=== PATIENT | male | born 1940 | race Caucasian/White ===

== ENCOUNTER 2018-04-01 09:20 | Emergency (ER) | payer MEDICARE ==
[~2018-04-01] VITALS: Ht 172.7 cm; Wt 86.2 kg
--- NOTE | 2018-04-01 09:36 | NUR ---
received a 77 y/o male patient, c/o chest pain. 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
[2018-04-01] MEDS ORDERED: DIATR MEGLU/DIATRIZOATE SODIUM 120 ML BOTTLE ONE (09:55)
[2018-04-01] MEDS ORDERED: IV NORMAL SALINE 500 ML BAG IV ONE (10:00)
[2018-04-01 10:04] LABS: BASOPHILS % (AUTO) 0.4 % (0.0-2.0); EOSINOPHILS # (AUTO) 0.1 K/uL (0.0-0.7); EOSINOPHILS % (AUTO) 2.8 % (0.0-7.0); HEMATOCRIT 44.3 % (36.7-47.1); HEMOGLOBIN 15.2 g/dL (12.5-16.3); LYMPHOCYTES # (AUTO) 1.7 K/uL (20.0-40.0); MEAN CORPUSCULAR HEMOGLOBIN 31.8 uug (23.8-33.4); MEAN CORPUSCULAR HGB CONC 34 g/dL (32.5-36.3); MEAN CORPUSCULAR VOLUME 92.8 fL (73.0-96.2); MONOCYTES # (AUTO) 0.4 K/uL (2.0-10.0); MONOCYTES % (AUTO) 7.9 % (0.0-11.0); NEUTROPHILS # (AUTO) 2.3 K/uL (1.8-8.9); NEUTROPHILS % (AUTO) 50.9 % (38.5-71.5); PLATELET COUNT (AUTO) 183 K/uL (152-348); RED BLOOD CELL COUNT(AUTO) 4.78 MIL/uL (4.06-5.63); WHITE BLOOD COUNT (AUTO) 4.5 K/uL (3.6-10.2)
--- NOTE | 2018-04-01 10:08 | NUR ---
RT AC IV LINE INSERTED G20, HOOKED TO N/S 500ML. RECEIVING ORAL CONTRAST, FOR CT W CONTRAST. CT QUESTIONNAIRE FILLED AND SIGNED
[2018-04-01 10:11] LABS: CARBON DIOXIDE 27 mmol/L (21-32); CHLORIDE 105 mmol/L (98-107); CREATININE 1.2 mg/dL (0.6-1.3); GLUCOSE 93 mg/dL (74-106); POTASSIUM 4.3 mmol/L (3.5-5.1); UREA NITROGEN, BLOOD 16 mg/dL (7-18)
[2018-04-01 10:17] LABS: ALANINE AMINOTRANSFERASE 26 U/L (16-63); ALKALINE PHOSPHATASE 95 U/L (50-136); ASPARTATE AMINOTRANSFERASE 17 U/L (15-37); BILIRUBIN,DIRECT 0.2 mg/dL (0.0-0.2); BILIRUBIN,TOTAL 0.8 mg/dL (0.2-1.0); LIPASE 176 U/L (73-393); TOTAL PROTEIN, SERUM 7.6 g/dL (6.4-8.2)
--- NOTE | 2018-04-01 11:06 | NUR ---
PT SENT TO RADIOLOGY UNIT FOR CT SCAN.
[2018-04-01 13:00] VITALS: BP 124/64
--- NOTE | 2018-04-01 13:02 | NUR ---
PATIENT FOR DISCHARGE, RECEIVED DISCHARGE INSTRUCTIONS, AND ALL LAB AND XRAY REPORTS.
== END 2018-04-01 13:04 | disposition home or self-care (01) ==
LOC: ER 09:20
DX: K21.9 Gastro-esophageal reflux disease without esophagitis (principal)
CPT/HCPCS: 36415; 71250; 74176; 80048; 80076; 83690; 84484; 85025; 93005; 99285; Q9963; 70030-TC; A4663; J7040

== ENCOUNTER 2018-06-01 10:49 | Emergency (ER) | payer MEDICARE ==
[~2018-06-01] VITALS: Ht 172.7 cm; Wt 86.2 kg
--- NOTE | 2018-06-01 11:06 | NUR ---
PT IS IN ROOM #1B. DR GARVEY EVALUATED THE PT.
--- NOTE | 2018-06-01 11:19 | NUR ---
PT WAS D/C'd TO HOME. D/C INSTRUCTIONS GIVEN TO THE PT.
[2018-06-01 11:21] VITALS: BP 132/75
== END 2018-06-01 11:22 | disposition home or self-care (01) ==
LOC: ER 10:49
DX: H81.10 Benign paroxysmal vertigo, unspecified ear (principal); K21.9 Gastro-esophageal reflux disease without esophagitis
CPT/HCPCS: A4663

== ENCOUNTER 2018-10-21 10:22 | Outpatient (CLI) | payer MEDICARE | END 2018-10-21 23:59 | disposition home or self-care (01) | LOC: CT 10:22 | DX: J84.10 Pulmonary fibrosis, unspecified (principal); I25.10 Atherosclerotic heart disease of native coronary artery without angina pectoris; M17.12 Unilateral primary osteoarthritis, left knee; K57.30 Diverticulosis of large intestine without perforation or abscess without bleeding; K42.9 Umbilical hernia without obstruction or gangrene; K44.9 Diaphragmatic hernia without obstruction or gangrene; J98.4 Other disorders of lung; M25.762 Osteophyte, left knee; J47.9 Bronchiectasis, uncomplicated; K75.3 Granulomatous hepatitis, not elsewhere classified; I70.0 Atherosclerosis of aorta | CPT/HCPCS: 71250; 74150 ==